=== PATIENT | female | born 1935 | race Caucasian/White ===

== ENCOUNTER 2019-10-08 14:33 | Inpatient (IN) ==
[2019-10-08] MEDS ORDERED: ONDANSETRON 4 MG/2 ML VIAL IV PRN (16:52)
[2019-10-08] MEDS ORDERED: MAGNESIUM HYDROXIDE SUSP 30 ML UDCUP PO PRN (16:52)
[2019-10-08] MEDS ORDERED: MORPHINE 4 MG/1 ML VIAL IV PRN ×2 (16:52→17:23)
[2019-10-08] MEDS ORDERED: traZODone 50 MG TABLET PO PRN (17:23)
[2019-10-08] MEDS ORDERED: LACTULOSE 20 GM/30 ML UDCUP PO PRN (17:23)
[2019-10-08] MEDS ORDERED: CALCIUM CARBONATE CHEW 500 MG TABLET PO PRN (17:23)
[2019-10-08] MEDS ORDERED: ZALEPLON 5 MG CAPSULE PO PRN (17:23)
[2019-10-08] MEDS ORDERED: diphenhydrAMINE CAP 25 MG CAPSULE PO PRN (17:23)
[2019-10-08] MEDS ORDERED: guaiFENesin/DM ER 600-30 MG TABLET PO PRN (17:23)
[2019-10-08] MEDS ORDERED: SIMETHICONE CHEW 125 MG TABLET PO PRN (17:23)
[2019-10-08] MEDS ORDERED: ALUMINUM/MAGNES/SIMETH MAX STR 30 ML UDCUP PO PRN (17:23)
[2019-10-08] MEDS ORDERED: hydrALAZINE 20 MG/1 ML VIAL IV PRN (17:23)
[2019-10-08] MEDS ORDERED: BISACODYL 5 MG TABLET PO PRN (17:23)
[2019-10-08 17:50] LABS: Basophils % 0.3 % (0.0-0.8); Eosinophils # 0.1 10*3/uL (0.0-0.87); Eosinophils % 1.1 % (0.00-10.9); Hematocrit 28.4 VOL% (35.7-47.0); Hemoglobin 8.8 GM/DL (12.0-16.0); Immature Granulocytes % 0.4 %; Immature Granulocytes Absolute 0.05 #; Lymphocytes # 1.3 10*3/uL (1.4-4.0); Lymphocytes % 11.5 % (21.3-54.2); Mean Corpuscular Volume 91.3 FL (87-102); Monocytes % 6.2 % (1.7-12.7); Neutrophils % 80.5 % (38.7-73.9); Platelet Count 177 T/CUMM (130-400); Red Blood Count 3.11 MC/CUMM (3.8-5.5); Red Cell Distribution Width 14.9 % (9.3-17.3); White Blood Count 11.2 T/CUMM (4-12)
[2019-10-08 18:03] LABS: Apearance,Urine CLEAR (Clear); Bacteria,Urine Occasional /HPF (Few); Bilirubin,Urine Negative (Negative); Blood, Urine Negative (Negative); Glucose,Urine (UA) Negative (Negative); Hyaline Casts,Urine 1 /LPF (0-3); Ketones,Urine Negative (Negative); Mucus,Urine Occasional /LPF (Occasional); Nitrite,Urine Negative (Negative); Protein,Urine 100 MG/DL; RBC,Urine 5 /HPF (0-4); Urine Color Yellow (Yellow); Urine Specific Gravity 1.014 (1.001-1.035); Urine Urobilinogen < 2.0 EU/DL (0.2-1.0)
[2019-10-08 18:07] LABS: PT Patient Result 10.9 SECS (9.8-11.9)
[2019-10-08 18:15] LABS: Albumin 3.4 G/DL (3.4-5.0); Bilirubin,Total 0.5 MG/DL (0.2-1.0); Calcium 8.5 MG/DL (8.5-10.1); Osmolality,Calculated 285.3 MOS/KG (273-304); Total Protein 6.5 G/DL (6.4-8.3)
[2019-10-08] MEDS: SODIUM CHLORIDE 0.45% 1,000 ML IV SCH (20:19)
[2019-10-08] MEDS: MORPHINE 4 MG/1 ML VIAL IV PRN (20:19)
[2019-10-08] MEDS: MEMANTINE 5 MG TABLET PO SCH (21:55)
[2019-10-09] MEDS ORDERED: ceFAZolin 1,000 MG in SYRINGE 1 EACH IV ONE (06:00)
[2019-10-09] MEDS ORDERED: VANCOMYCIN INJ 1,000 MG in SODIUM CHLORIDE 0.9% 250 ML IV ONE (06:00)
[2019-10-09] MEDS: MORPHINE 4 MG/1 ML VIAL IV PRN (06:02)
[2019-10-09 06:03] LABS: Basophils % 0.3 % (0.0-0.8); Eosinophils # 0.2 10*3/uL (0.0-0.87); Eosinophils % 1.6 % (0.00-10.9); Hematocrit 28.7 VOL% (35.7-47.0); Hemoglobin 8.7 GM/DL (12.0-16.0); Immature Granulocytes % 0.2 %; Immature Granulocytes Absolute 0.02 #; Lymphocytes # 2.3 10*3/uL (1.4-4.0); Lymphocytes % 23.3 % (21.3-54.2); Mean Corpuscular HGB Conc 30.3 GM/DL (32-36); Mean Corpuscular Volume 92.3 FL (87-102); Mean Platelet Volume 11.3 FL (9.6-12.0); Monocytes % 9.5 % (1.7-12.7); Neutrophils % 65.1 % (38.7-73.9); Platelet Count 183 T/CUMM (130-400); Red Blood Count 3.11 MC/CUMM (3.8-5.5); Red Cell Distribution Width 15.4 % (9.3-17.3)
[2019-10-09 06:29] LABS: Risk Ratio 3.12; VLDL CHOLESTEROL 35.6 MG/DL
[2019-10-09 06:37] LABS: Albumin 3.2 G/DL (3.4-5.0); Bilirubin,Total 1.4 MG/DL (0.2-1.0); Calcium 8.7 MG/DL (8.5-10.1); Osmolality,Calculated 282.4 MOS/KG (273-304); Thyroid Stimulating Hormone 1.52 uIU/ml (0.358-3.74); Total Protein 6.3 G/DL (6.4-8.3)
[2019-10-09] MEDS ORDERED: ceFAZolin 1,000 MG VIAL ONE (07:49)
[2019-10-09] MEDS ORDERED: BACITRACIN OINT 0.9 GM PACK TOP ONE (08:09)
[2019-10-09] MEDS ORDERED: ROPIVACAINE 0.5% 30 ML VIAL ONE (09:23)
[2019-10-09] MEDS ORDERED: DEXAMETHASONE 4 MG/1 ML VIAL ONE (09:23)
[2019-10-09] MEDS ORDERED: LIDOCAINE 2% 5 ML VIAL ONE ×2 (09:24→10:00)
[2019-10-09] MEDS ORDERED: KETOROLAC 15 MG/1 ML VIAL IV PRN (09:40)
[2019-10-09] MEDS ORDERED: fentaNYL 100 MCG/2 ML VIAL ONE (10:00)
[2019-10-09] MEDS ORDERED: ePHEDrine 50 MG/ML AMP ONE (10:00)
[2019-10-09] MEDS ORDERED: SEVOFLURANE 1 UNIT/15 MINUTE INH ONE (10:00)
[2019-10-09] MEDS ORDERED: PHENYLEPHRINE 1 MG/10 ML SYRINGE IV ONE (10:01)
[2019-10-09] MEDS ORDERED: ROCURONIUM 100 MG/10 ML VIAL IV ONE (10:01)
[2019-10-09] MEDS ORDERED: TRANEXAMIC ACID 1,000 MG/10 ML VIAL ONE (10:01)
[2019-10-09] MEDS ORDERED: ETOMIDATE 40 MG/20 ML VIAL IV ONE (10:01)
[2019-10-09] MEDS ORDERED: SUCCINYLCHOLINE 200 MG/10 ML VIAL ONE (10:01)
[2019-10-09] MEDS: LACTATED RINGERS 1,000 ML IV SCH ×2 (13:02→20:34)
[2019-10-09] MEDS: ceFAZolin 1,000 MG in SYRINGE 1 EACH IV SCH ×2 (13:10→20:54)
[2019-10-09] MEDS: MEMANTINE 5 MG TABLET PO SCH ×2 (13:15→20:35)
[2019-10-09] MEDS: LEVOTHYROXINE 88 MCG TABLET PO SCH (13:15)
[2019-10-09] MEDS: DONEPEZIL 10 MG TABLET PO SCH (13:15)
[2019-10-09] MEDS: PANTOPRAZOLE 40 MG TABLET PO SCH (13:16)
[2019-10-09] MEDS: lisinopriL 20 MG TABLET PO SCH (14:27)
[2019-10-09] MEDS: ATORVASTATIN 80 MG TABLET PO SCH (14:27)
[2019-10-09] MEDS: SODIUM CHLORIDE 0.45% 1,000 ML IV SCH (15:45)
[2019-10-09] MEDS: OMEGA 3 ACID ETHYL ESTERS 1 GM CAPSULE PO SCH (20:35)
[2019-10-09] MEDS: DOCUSATE SODIUM 100 MG CAPSULE PO SCH (20:35)
[2019-10-09] MEDS ORDERED: ENOXAPARIN 40 MG/0.4 ML SYRINGE SUBCUT SCH (21:00)
[2019-10-10] MEDS: FONDAPARINUX 2.5 MG/0.5 ML SYRINGE SUBCUT SCH (03:07)
[2019-10-10] MEDS: LACTATED RINGERS 1,000 ML IV SCH ×2 (06:00→12:00)
[2019-10-10 06:15] LABS: Basophils % 0.3 % (0.0-0.8); Eosinophils # 0.1 10*3/uL (0.0-0.87); Hematocrit 28.1 VOL% (35.7-47.0); Immature Granulocytes % 0.5 %; Immature Granulocytes Absolute 0.06 #; Lymphocytes # 2.1 10*3/uL (1.4-4.0); Lymphocytes % 17.5 % (21.3-54.2); Mean Corpuscular Volume 89.5 FL (87-102); Mean Platelet Volume 11.3 FL (9.6-12.0); Monocytes % 11.3 % (1.7-12.7); Neutrophils % 69.4 % (38.7-73.9); Platelet Count 104 T/CUMM (130-400); Red Blood Count 3.14 MC/CUMM (3.8-5.5); Red Cell Distribution Width 15.2 % (9.3-17.3); White Blood Count 11.9 T/CUMM (4-12)
[2019-10-10 06:46] LABS: Albumin 2.3 G/DL (3.4-5.0); Bilirubin,Total 0.8 MG/DL (0.2-1.0); Calcium 7.9 MG/DL (8.5-10.1); Osmolality,Calculated 280.7 MOS/KG (273-304); Thyroid Stimulating Hormone 0.676 uIU/ml (0.358-3.74)
[2019-10-10] MEDS: OMEGA 3 ACID ETHYL ESTERS 1 GM CAPSULE PO SCH ×2 (09:02→20:40)
[2019-10-10] MEDS: PANTOPRAZOLE 40 MG TABLET PO SCH (09:03)
[2019-10-10] MEDS: ATORVASTATIN 80 MG TABLET PO SCH (09:03)
[2019-10-10] MEDS: LEVOTHYROXINE 88 MCG TABLET PO SCH (09:03)
[2019-10-10] MEDS: MEMANTINE 5 MG TABLET PO SCH ×2 (09:03→20:40)
[2019-10-10] MEDS: DONEPEZIL 10 MG TABLET PO SCH (09:03)
[2019-10-10] MEDS: DOCUSATE SODIUM 100 MG CAPSULE PO SCH ×2 (09:03→20:40)
[2019-10-10] MEDS: lisinopriL 20 MG TABLET PO SCH (09:10)
[2019-10-10] MEDS: SODIUM CHLORIDE 0.45% 1,000 ML IV SCH (10:47)
[2019-10-10] MEDS: ACETAMINOPHEN 325 MG TABLET PO PRN (15:45)
[2019-10-11] MEDS: LACTATED RINGERS 1,000 ML IV SCH ×3 (04:20→22:55)
[2019-10-11] MEDS: FONDAPARINUX 2.5 MG/0.5 ML SYRINGE SUBCUT SCH (04:50)
[2019-10-11 06:35] LABS: Basophils % 0.2 % (0.0-0.8); Eosinophils # 0.4 10*3/uL (0.0-0.87); Eosinophils % 3.5 % (0.00-10.9); Hematocrit 26.2 VOL% (35.7-47.0); Hemoglobin 8.5 GM/DL (12.0-16.0); Immature Granulocytes % 0.5 %; Immature Granulocytes Absolute 0.05 #; Lymphocytes # 1.7 10*3/uL (1.4-4.0); Lymphocytes % 15.4 % (21.3-54.2); Mean Corpuscular HGB Conc 32.4 GM/DL (32-36); Mean Corpuscular Volume 89.1 FL (87-102); Mean Platelet Volume 12.1 FL (9.6-12.0); Monocytes % 9.8 % (1.7-12.7); Neutrophils % 70.6 % (38.7-73.9); Platelet Count 103 T/CUMM (130-400); Red Blood Count 2.94 MC/CUMM (3.8-5.5); Red Cell Distribution Width 15.2 % (9.3-17.3); White Blood Count 10.7 T/CUMM (4-12)
[2019-10-11 07:54] LABS: Bilirubin,Total 0.9 MG/DL (0.2-1.0); Calcium 8.1 MG/DL (8.5-10.1); Osmolality,Calculated 282.5 MOS/KG (273-304); Thyroid Stimulating Hormone 1.95 uIU/ml (0.358-3.74); Total Protein 5.2 G/DL (6.4-8.3)
[2019-10-11] MEDS ORDERED: MAGNESIUM HYDROXIDE SUSP 30 ML UDCUP PO ONE (09:02)
[2019-10-11] MEDS: ATORVASTATIN 80 MG TABLET PO SCH (09:26)
[2019-10-11] MEDS: PANTOPRAZOLE 40 MG TABLET PO SCH (09:26)
[2019-10-11] MEDS: LEVOTHYROXINE 88 MCG TABLET PO SCH (09:26)
[2019-10-11] MEDS: DOCUSATE SODIUM 100 MG CAPSULE PO SCH ×2 (09:26→20:58)
[2019-10-11] MEDS: DONEPEZIL 10 MG TABLET PO SCH (09:27)
[2019-10-11] MEDS: MEMANTINE 5 MG TABLET PO SCH ×2 (09:27→20:58)
[2019-10-11] MEDS: lisinopriL 20 MG TABLET PO SCH (09:27)
[2019-10-11] MEDS: OMEGA 3 ACID ETHYL ESTERS 1 GM CAPSULE PO SCH ×2 (09:27→20:58)
[2019-10-11] MEDS ORDERED: BISACODYL 5 MG TABLET PO ONE (09:29)
[2019-10-11] MEDS: SODIUM CHLORIDE 0.45% 1,000 ML IV SCH (09:33)
[2019-10-11] MEDS: ACETAMINOPHEN 325 MG TABLET PO PRN (16:29)
[2019-10-12] MEDS: FONDAPARINUX 2.5 MG/0.5 ML SYRINGE SUBCUT SCH (04:52)
[2019-10-12] MEDS: LACTATED RINGERS 1,000 ML IV SCH (05:42)
[2019-10-12] MEDS ORDERED: IRON SUCROSE 300 MG in SODIUM CHLORIDE 0.9% 100 ML IV ONE (07:53)
[2019-10-12] MEDS ORDERED: MAGNESIUM HYDROXIDE SUSP 30 ML UDCUP PO ONE (07:54)
[2019-10-12 08:39] LABS: Basophils % 0.2 % (0.0-0.8); Eosinophils # 0.4 10*3/uL (0.0-0.87); Eosinophils % 4.1 % (0.00-10.9); Hematocrit 26.6 VOL% (35.7-47.0); Hemoglobin 8.4 GM/DL (12.0-16.0); Immature Granulocytes % 0.6 %; Immature Granulocytes Absolute 0.05 #; Lymphocytes # 1.6 10*3/uL (1.4-4.0); Mean Corpuscular HGB Conc 31.6 GM/DL (32-36); Mean Corpuscular Volume 91.1 FL (87-102); Mean Platelet Volume 11.7 FL (9.6-12.0); Monocytes % 9.1 % (1.7-12.7); Platelet Count 128 T/CUMM (130-400); Red Blood Count 2.92 MC/CUMM (3.8-5.5); Red Cell Distribution Width 14.8 % (9.3-17.3); White Blood Count 8.7 T/CUMM (4-12)
[2019-10-12] MEDS ORDERED: CLOPIDOGREL 75 MG TABLET PO SCH (09:00)
[2019-10-12 09:07] LABS: Albumin 2.2 G/DL (3.4-5.0); Bilirubin,Total 0.6 MG/DL (0.2-1.0); Calcium 8.1 MG/DL (8.5-10.1); Osmolality,Calculated 280.5 MOS/KG (273-304); Total Protein 5.7 G/DL (6.4-8.3)
[2019-10-12] MEDS: OMEGA 3 ACID ETHYL ESTERS 1 GM CAPSULE PO SCH (09:36)
[2019-10-12] MEDS: DONEPEZIL 10 MG TABLET PO SCH (09:38)
[2019-10-12] MEDS: LEVOTHYROXINE 88 MCG TABLET PO SCH (09:38)
[2019-10-12] MEDS: ATORVASTATIN 80 MG TABLET PO SCH (09:38)
[2019-10-12] MEDS: MEMANTINE 5 MG TABLET PO SCH (09:39)
[2019-10-12] MEDS: lisinopriL 20 MG TABLET PO SCH (09:39)
[2019-10-12] MEDS: DOCUSATE SODIUM 100 MG CAPSULE PO SCH (09:39)
[2019-10-12] MEDS: PANTOPRAZOLE 40 MG TABLET PO SCH (09:40)
[2019-10-12 12:30] VITALS: BP 167/68
== END 2019-10-12 13:15 | disposition home health service (06) | DRG 467 ==
LOC: N.ED 14:33 → N.EDINP 17:23 → SUATTDRO 17:23 → N.3E 18:08
PROVIDERS: ADMIT Internal Medicine; ATTEND Internal Medicine